=== PATIENT | male | born 1940 | race Caucasian/White ===

== ENCOUNTER 2020-10-02 06:15 | Day surgery (SDC) | payer MEDICARE, OTHER ==
[~2020-10-02] VITALS: Ht 180.3 cm; Wt 79.5 kg
[~2020-10-02 06:15] MED LIST: ARICEPT10 MG PO; FLOMAX0.4 MG PO; VITAMIN D350 MC3 PO
--- NOTE | 2020-10-02 08:30 | NUR ---
10/02/20 0830 Selin Guillory 0821- PT TO PACU IN LL POSITION. EYES CLOSED. RESPONDS TO TACTILE STIMULI BUT DOES NOT FOLLOW COMMANDS. BREATHING EASY AND UNLABORED. SPO2 >95% ON 2L O2 VIA NC. 0830- PT CONTINUES TO REST IN LL POSITION WITH EYES CLOSED. MUMBLES WITH VERBAL AND TACTILE STIMULI BUT DOES NOT OPEN EYES OR FOLLOW COMMANDS. BREATHING EASY AND UNLABORED. SPO2 >95% ON 2 L O2 VIA NC.
--- NOTE | 2020-10-02 10:09 | NUR ---
PT ALERT, ORIENTED AND SUPPORTED BY HIS . ALL QUESTIONS ASKED ANSWERED. DR DUMAS IN TO CHECK ON PT.PT REQUESTED PRAYER, TO REMAIN IN RM. WILL FOLLOW NEEDED
--- NOTE | 2020-10-03 13:59 | PATH ---
[facility] [address] [place] [address] [place], [place] [address] Signed SPECIMEN(S): A DESCENDING COLON POLYP SPECIMEN(S): B ASCENDING COLON POLYP SPECIMEN SOURCE: A. DESCENDING COLON POLYP B. ASCENDING COLON POLYP CLINICAL HISTORY: Colonoscopy. History of colon polyps. Postop: Polyps x 2. MICROSCOPIC DESCRIPTION: Histologic sections of all submitted blocks are examined by light microscopy. These findings, together with the gross examination, support the pathologic diagnosis. FINAL PATHOLOGIC DIAGNOSIS: A. Colon, descending polyp, polypectomy: - Fragments of hyperplastic polyp. - Negative for dysplasia or malignancy. B. Colon, ascending polyp, polypectomy: - Fragments of sessile serrated adenoma/polyp. - Negative for dysplasia or malignancy. NAL:cml:C2NR GROSS DESCRIPTION: Two specimens are received in two containers, labeled "SB." A. The specimen, labeled "SB, 1," and designated on the requisition "descending colon polyp," is received in formalin and consists of multiple shearer soft tissue fragments that measure up to 0.3 cm in greatest dimension. The specimen is entirely submitted in cassette (A1). B. The specimen, labeled "SB, 2," and designated on the requisition "ascending colon polyp," is received in formalin and consists of three shearer soft tissue fragments that measure 0.3-0.4 cm in greatest dimension. The specimen is entirely submitted in cassette (B1). AT (under the direct supervision of a pathologist) The Gross Description was prepared using a voice recognition system. The report was reviewed for accuracy; however, sound-alike word errors, addition and/or deletions may occur. If there is any question about this report, please contact Client Services. PERFORMING LABORATORY: The technical component was performed by [facility], Patricia Dacostagarry Nicholas, PATIENT NAME: ROLF ANDERS PATHOLOGY DATE OF : 44 REPORT #: [id number] PHYSICIAN: DAMIAN MAXWELL PCP: EDSON ZHONG MD REPORT IS CONFIDENTIAL AND NOT TO BE RELEASED WITHOUT AUTHORIZATION [facility] [address] [place], [place] [address] [place] [address] (Make Up Artist: Libra De León MD; CLIA# [id number]). Professional interpretation was performed by [facility], [address] [address] (CLIA# [id number]). Diagnostician: Asia Borja MD Pathologist Electronically Signed 10/03/2020 Copies: ~ PATIENT NAME: ROLF ANDERS PATHOLOGY DATE OF : 44 REPORT #: [id number] PHYSICIAN: DAMIAN MAXWELL PCP: EDSON ZHONG MD REPORT IS CONFIDENTIAL AND NOT TO BE RELEASED WITHOUT AUTHORIZATION
--- NOTE | 2020-10-04 16:02 | OR ---
[facility] [address] [place], [place] [address] Signed DATE OF OPERATION: 10/02/2020 SURGEON: Marco Dumas MD PREOPERATIVE DIAGNOSIS: Colon surveillance. POSTOPERATIVE DIAGNOSIS: Polyps x2 (right colon and left colon). PROCEDURE: Total colonoscopy to cecum with cold morcellation polypectomy x2. ANESTHESIA: Intravenous sedation, propofol infusion; Louann Delgado CRNA. INDICATIONS: This 80-year-old white man is a patient of Dr. Kyle Robbins and had seen me in May of 2020 for consideration of interval surveillance colonoscopy. His last colonoscopy was in April of 2011. His previous colonoscopy showed some inflammation of the cecum and a 2 mm area thought to be a polyp was considered to be mild inflammation. He did undergo radiation therapy for prostate cancer in 2010. His PSA in January was 3.4. He is having no symptoms of bleeding, diarrhea, or constipation at this time and is now ready for colonoscopy. The patient did have some concerns regarding the COVID pandemic and delayed his planned date of colonoscopy on that basis. He has been fully vaccinated. He is not known to have had COVID disease and his preoperative COVID test is negative. FINDINGS: The prep was good. Complete colonoscopy was undertaken of the cecum without question. There were 2 small polyps, 1 in the mid descending colon, the other in the mid ascending colon. Both were excised with cold morcellation technique completely. There were no other findings of concern. DESCRIPTION OF PROCEDURE: The patient was brought to the surgical endoscopy suite and placed in lateral decubitus position. He was given intravenous sedation with propofol infusional technique by the pattern cutter with full cardiopulmonary monitoring. Digital rectal examination was normal. Electronically Signed By: MARCO DUMAS MD 10/04/20 1602 PATIENT NAME: ROLF ANDERS OPERATIVE REPORT DATE OF : 44 REPORT #: [id number] PHYSICIAN: MARCO DUMAS MD PCP: KYLE ROBBINS MD REPORT IS CONFIDENTIAL AND NOT TO BE RELEASED WITHOUT AUTHORIZATION [facility] [address] [place], [place] [address] Signed An Olympus video colonoscope was passed in the rectum and manipulated throughout the colon. In the mid descending colon, there was a small polyp. Given that small size and possibility of not seen upon return, it was excised with cold morcellation technique at that point. Once completed, the scope was then advanced further ultimately to the cecum. Ileocecal valve and appendiceal orifice were well identified and normal. The scope was withdrawn and in the mid ascending colon, there was another similar such small polyp, most likely adenomatous. It was excised with cold morcellation technique as well. Further withdrawal of scope showed no other abnormalities. The biopsy site in the mid descending colon was found to be hemostatic and without sign of residual polyp. Further withdrawal of scope showed no other abnormality. Retroflexed view showed internal hemorrhoidal changes, but no other problems. The scope was removed and the patient was taken to recovery room in good condition. CONCLUDING DIAGNOSIS: Polyps x2. PLAN: Recommend repeat colonoscopy in 5 years if clinically appropriate based on his medical status at that time. MD AMBREEN Duong/CONY /[id number] cc: Kyle Robbins MD Copies: KYLE ROBBINS MD ~ Electronically Signed By: MARCO DUMAS MD 10/04/20 1602 PATIENT NAME: ROLF ANDERS OPERATIVE REPORT DATE OF : 44 REPORT #: [id number] PHYSICIAN: MARCO DUMAS MD PCP: KYLE ROBBINS MD REPORT IS CONFIDENTIAL AND NOT TO BE RELEASED WITHOUT AUTHORIZATION
== END 2020-10-02 09:10 | disposition home or self-care (01) ==
LOC: OPS 06:15 → DS 06:15 → OPS 06:45
PROVIDERS: ATTEND Surgery
PROC: 0DBM8ZX Excision of Descending Colon, Via Natural or Artificial Opening Endoscopic, Diagnostic (ICD-10-PCS; 2020-10-02)
PROC: 0DBK8ZX Excision of Ascending Colon, Via Natural or Artificial Opening Endoscopic, Diagnostic (ICD-10-PCS; principal; 2020-10-02 06:45)
DX: Z12.11 Encounter for screening for malignant neoplasm of colon (principal); D12.2 Benign neoplasm of ascending colon; N42.9 Disorder of prostate, unspecified; Z87.891 Personal history of nicotine dependence
CPT/HCPCS: J2001; J2704

== ENCOUNTER 2023-10-05 22:12 | Emergency (ER) | payer MEDICARE, OTHER ==
[~2023-10-05] VITALS: Ht 180.3 cm; Wt 81.0 kg
[~2023-10-05 22:12] MED LIST changes: +CITALOPRAM HBR20 MG PO; +QUETIAPINE FUMA25 MG PO
[2023-10-05 22:24] LABS: HEMOGLOBIN 12.5 g/dL (12.0-18.0); MCHC 34.1 g/dl (30-36)
[2023-10-05 22:26] LABS: BASOPHILS 1.6 % (0-2); EOSINOPHILS 6.5 % (0-6); HEMATOCRIT 36.6 % (35.0-50.0); LYMPHOCYTES 26.9 % (24-44); MCH 33.2 (27-36); MCV 97.5 fl (81-99); PLATELET COUNT 174 K/uL (140-440); RBC 3.75 M/ul (4.3-5.7); RDW 13.5 (10.5-15.0)
[2023-10-05 22:38] LABS: ALBUMIN 3.2 g/dL (3.4-5.0); ALBUMIN/GLOBULIN RATIO 1.03 (1.1-2.4); ANION GAP 11.1 (7-21); BILIRUBIN, TOTAL 1.3 ng/dL (0.2-1.0); BUN/CREATININE RATIO 21.5 (6.0-28.6); CALCIUM 8.8 mg/dL (8.5-10.1); CREATININE, SERUM 0.93 mg/dL (0.70-1.30); POTASSIUM 4.1 mmol/L (3.5-5.1); PROTEIN, TOTAL 6.3 g/dL (6.4-8.2)
[2023-10-06 00:08] VITALS: BP 121/78
== END 2023-10-06 00:03 | disposition home or self-care (01) ==
LOC: ED 22:12
PROVIDERS: Internal Medicine
DX: Z04.3 Encounter for examination and observation following other accident (principal); F03.90 Unspecified dementia, unspecified severity, without behavioral disturbance, psychotic disturbance, mood disturbance, and anxiety; W18.30XA Fall on same level, unspecified, initial encounter; Z87.891 Personal history of nicotine dependence; Z91.030 Bee allergy status; Z79.899 Other long term (current) drug therapy; Z91.81 History of falling
CPT/HCPCS: 36415; 70450; 72125; 80053; 85025; G0480

== ENCOUNTER 2023-10-14 21:21 | Emergency (ER) | payer MEDICARE, OTHER ==
[~2023-10-14] VITALS: Ht 180.3 cm; Wt 74.2 kg
[2023-10-14] MEDS ORDERED: RISPERIDONE0.5 MG PO (21:37)
[2023-10-14] MEDS ORDERED: DONEPEZIL HCL10 MG PO (21:38)
[2023-10-14 21:54] LABS: BASOPHILS 0.5 % (0-2); EOSINOPHILS 1.9 % (0-6); HEMATOCRIT 40.6 % (35.0-50.0); HEMOGLOBIN 13.9 g/dL (12.0-18.0); LYMPHOCYTES 16.5 % (24-44); MCH 33.3 (27-36); MCHC 34.3 g/dl (30-36); MCV 96.9 fl (81-99); MONOCYTES 11.8 % (0-12); NEUTROPHILS 69.3 % (39-80); PLATELET COUNT 174 K/uL (140-440); RBC 4.19 M/ul (4.3-5.7); RDW 13.4 (10.5-15.0)
[2023-10-14 22:07] LABS: ALBUMIN 3.7 g/dL (3.4-5.0); ALBUMIN/GLOBULIN RATIO 1.23 (1.1-2.4); ANION GAP 14.3 (7-21); BILIRUBIN, TOTAL 2.6 ng/dL (0.2-1.0); BUN/CREATININE RATIO 18.96 (6.0-28.6); CALCIUM 9.1 mg/dL (8.5-10.1); CREATININE, SERUM 1.16 mg/dL (0.70-1.30); MAGNESIUM 2.1 mg/dL (1.8-2.4); POTASSIUM 3.3 mmol/L (3.5-5.1); PROTEIN, TOTAL 6.7 g/dL (6.4-8.2)
[2023-10-15 00:15] VITALS: BP 114/74
== END 2023-10-15 00:43 | disposition home or self-care (01) ==
LOC: ED 21:21
PROVIDERS: Internal Medicine
DX: S00.03XA Contusion of scalp, initial encounter (principal); F03.90 Unspecified dementia, unspecified severity, without behavioral disturbance, psychotic disturbance, mood disturbance, and anxiety; W19.XXXA Unspecified fall, initial encounter; Z87.891 Personal history of nicotine dependence; Z91.030 Bee allergy status; Z79.899 Other long term (current) drug therapy
CPT/HCPCS: 36415; 70450; 70486; 72125; 80053; 83735; 84484; 85025; 99284-25

== ENCOUNTER 2023-12-16 08:20 | Emergency (ER) | payer MEDICARE, OTHER ==
[~2023-12-16 08:20] MED LIST changes: +DONEPEZIL HCL10 MG PO; +RISPERIDONE0.5 MG PO
== END 2023-12-16 11:12 | disposition home or self-care (01) ==
LOC: ED 08:20
DX: S01.81XA Laceration without foreign body of other part of head, initial encounter (principal); S41.112A Laceration without foreign body of left upper arm, initial encounter; W19.XXXA Unspecified fall, initial encounter; F03.90 Unspecified dementia, unspecified severity, without behavioral disturbance, psychotic disturbance, mood disturbance, and anxiety; I10 Essential (primary) hypertension; Z79.899 Other long term (current) drug therapy
CPT/HCPCS: 70450; 72125

== ENCOUNTER 2023-12-17 14:46 | Emergency (ER) | payer MEDICARE, OTHER ==
[2023-12-17 14:59] LABS: BASOPHILS 0.3 % (0-2); EOSINOPHILS 1.6 % (0-6); HEMATOCRIT 32.8 % (35.0-50.0); HEMOGLOBIN 11.3 g/dL (12.0-18.0); LYMPHOCYTES 13.9 % (24-44); MCH 33.6 (27-36); MCHC 34.3 g/dl (30-36); MCV 97.8 fl (81-99); MONOCYTES 8.8 % (0-12); NEUTROPHILS 75.4 % (39-80); PLATELET COUNT 161 K/uL (140-440); RBC 3.36 M/ul (4.3-5.7); RDW 14.5 (10.5-15.0)
[2023-12-17 15:06] LABS: INR 1.18 (0.80-1.30); PROTIME 14.6 Sec (11.2-14.2)
[2023-12-17 15:11] LABS: ALBUMIN 2.5 g/dL (3.4-5.0); ALBUMIN/GLOBULIN RATIO 0.93 (1.1-2.4); ALCOHOL, MEDICAL <3 ng/dL (<3); ALKALINE PHOSPHATASE 47 U/L (46-116); ALT (SGPT) 17 U/L (14-59); ANION GAP 9.5 (7-21); AST (SGOT) 18 U/L (15-37); BILIRUBIN, TOTAL 1.5 ng/dL (0.2-1.0); BUN/CREATININE RATIO 36.36 (6.0-28.6); CALCIUM 8.1 mg/dL (8.5-10.1); CARBON DIOXIDE 29 mmol/L (21-32); CHLORIDE 111 mmol/L (98-107); CREATININE, SERUM 0.88 mg/dL (0.70-1.30); GLOMERULAR FILTRATION RATE,EST 86 mL/min (>60); POTASSIUM 3.5 mmol/L (3.5-5.1); PROTEIN, TOTAL 5.2 g/dL (6.4-8.2); UREA NITROGEN 32 mg/dL (7-18)
[2023-12-17] MEDS ORDERED: SODIUM CHLORIDE 0.9% 1,000 ML IV SCH (15:15)
[2023-12-17] MEDS ORDERED: SODIUM CHLORIDE 0.9% 500 ML IV PRN (15:15)
[2023-12-17 15:51] LABS: BILIRUBIN, URINE NEGATIVE (negative); BLOOD/HGB, URINE SMALL (Negative); KETONE, URINE NEGATIVE (Negative); LEUK ESTERASE, URINE NEGATIVE (negative); NITRITE, URINE NEGATIVE (negative)
[2023-12-17 16:05] LABS: CRYSTALS, URINE NONE SEEN (0-1+); EPITHELIAL CELLS, URINE NONE SEEN /lpf (0-1+)
[2023-12-17 16:06] LABS: BACTERIA, URINE NONE SEEN /hpf (negative); CASTS, URINE NONE SEEN \\lpf; COLLECTION TYPE, URINE CLEAN CATCH; REFLEX CULTURE, URINE No (No)
[2023-12-17 16:10] LABS: AMPHETAMINES, URINE NEGATIVE (NEGATIVE); BARBITURATES, URINE NEGATIVE (NEGATIVE); BENZODIAZEPINE, URINE NEGATIVE (NEGATIVE); BUPRENORPHINE, URINE NEGATIVE (NEGATIVE); CANNABINOID, URINE NEGATIVE (NEGATIVE); COCAINE, URINE NEGATIVE (NEGATIVE); ECSTASY, URINE NEGATIVE (NEGATIVE); FENTANYL, URINE NEGATIVE (NEGATIVE); METHADONE, URINE NEGATIVE (NEGATIVE); OPIATES, URINE NEGATIVE (NEGATIVE); OXYCODONE, URINE NEGATIVE (NEGATIVE); PHENCYCLIDINE, URINE NEGATIVE (NEGATIVE)
[2023-12-17 18:06] VITALS: BP 91/50
--- NOTE | 2023-12-19 11:27 | EKG ---
[facility] [address] [facility] [place], [place] [address] Signed Normal sinus rhythm with sinus arrhythmia Normal ECG When compared with ECG of 17-DEC-2023 16:01, (Unconfirmed) No significant change was found Confirmed by GRACE MOSS MD ([id number]) on 12/19/2023 11:27:47 AM Electronically Signed By: GRACE MOSS 12/19/23 1127 PATIENT NAME: MARTITAROLF RUCKER Electrocardiogram DATE OF : 44 PHYSICIAN: GRACE MOSS REPORT #: [id number] REPORT IS CONFIDENTIAL AND NOT TO BE RELEASED WITHOUT AUTHORIZATION
== END 2023-12-17 18:06 | disposition home or self-care (01) ==
LOC: ED 14:46
PROVIDERS: Family Medicine
DX: R46.89 Other symptoms and signs involving appearance and behavior (principal); E86.0 Dehydration; I10 Essential (primary) hypertension; J45.909 Unspecified asthma, uncomplicated; G30.9 Alzheimer's disease, unspecified; F02.80 Dementia in other diseases classified elsewhere, unspecified severity, without behavioral disturbance, psychotic disturbance, mood disturbance, and anxiety; Z79.899 Other long term (current) drug therapy; Z91.030 Bee allergy status
CPT/HCPCS: 36415; 51701; 70450; 80053; 80307; 81001; 85025; 85610; 93005; 93010; 99285-25; G0480; J7030; J7040